=== PATIENT | female | born 1995 | race Caucasian/White ===

== ENCOUNTER 2023-01-02 22:02 | Emergency (ER) | payer MEDICAID ==
[~2023-01-02] VITALS: Ht 160 cm; Wt 77.1 kg
[2023-01-02 22:07] VITALS: BP_SYST 128; PULSE 89; RESP 16; TEMP 97.5; O2SAT 100
[2023-01-02] MEDS ORDERED: PANTOPRAZOLE SODIUM 40 MG TAB PO ONE (22:15)
[2023-01-02 22:44] LABS: BASOPHILS % (AUTO) 0.4 % (0.0-2.0); EOSINOPHILS # (AUTO) 0.2 K/uL (0.0-0.4); EOSINOPHILS % (AUTO) 1.9 % (0.0-4.0); HEMATOCRIT 39.5 % (36-48); HEMOGLOBIN 12.7 g/dL (12.0-16.0); LYMPHOCYTES # (AUTO) 2.4 K/uL (1.0-5.5); LYMPHOCYTES % (AUTO) 29.9 % (20.5-51.5); MEAN CORPUSCULAR HEMOGLOBIN 27 pg (27-31); MEAN CORPUSCULAR HGB CONC 32 % (32-36); MEAN CORPUSCULAR VOLUME 83 fL (79.0-98.0); MONOCYTES # (AUTO) 0.5 K/uL (0.0-1.0); MONOCYTES % (AUTO) 5.9 % (1.7-9.3); NEUTROPHILS # (AUTO) 5.1 K/uL (1.8-7.7); NEUTROPHILS % (AUTO) 61.9 % (40.0-70.0); PLATELET COUNT (AUTO) 230 K/uL (130-430); RED BLOOD CELL COUNT(AUTO) 4.79 MIL/uL (4.2-6.2); WHITE BLOOD COUNT (AUTO) 8.2 K/uL (4.8-10.8)
[2023-01-02 22:47] LABS: ANION GAP 7 (5-15); CALCIUM 9.2 mg/dL (8.4-11.0); CARBON DIOXIDE 28 mmol/L (23-29); CHLORIDE 101 mmol/L (98-107); CREATININE 0.65 mg/dL (0.55-1.30); GFR AFRICAN AMERICAN 140 mL/min (>90); GLUCOSE 114 mg/dL (74-106); POTASSIUM 3.3 mmol/L (3.5-5.1); SODIUM SERUM 136 mmol/L (136-145); UREA NITROGEN, BLOOD 14 mg/dL (8-21)
[2023-01-02 22:54] LABS: ALANINE AMINOTRANSFERASE 40 U/L (12-78); ALBUMIN 3.5 g/dL (3.4-4.8); ASPARTATE AMINOTRANSFERASE 30 U/L (10-37); GFR NON AFRICAN-AMERICAN 115 mL/min (>90); LIPASE 27 U/L (16-77); TOTAL BILIRUBIN 0.2 mg/dL (0.0-1.0); TOTAL PROTEIN, SERUM 7.3 g/dL (6.4-8.3)
[2023-01-02] MEDS ORDERED: OMEP20CA15 PO (23:18)
[2023-01-02 23:30] VITALS: BP_SYST 128; PULSE 89; RESP 16; TEMP 97.5; O2SAT 100
== END 2023-01-02 23:30 | disposition home or self-care (01) ==
LOC: SED 22:02
DX: K29.00 Acute gastritis without bleeding (principal)
CPT/HCPCS: 36415; 80053; 83690; 84484; 85025; 93005; 99284